=== PATIENT | male | born 1970 | race African-American/Black ===

== ENCOUNTER 2020-08-11 01:52 | Emergency (ER) | payer MEDICAID ==
[~2020-08-11] VITALS: Ht 172.7 cm; Wt 133.8 kg
[~2020-08-11 01:52] MED LIST: METF1000 PO
[2020-08-11 04:00] VITALS: BP 129/70
[2020-08-11 05:01] LABS: BASOPHILS % 1.1 % (0.0-2.0); HEMATOCRIT. 35.9 % (42.0-52.0); HEMOGLOBIN. 11.8 g/dL (14.0-18.0); LYMPHOCYTES % 35.5 % (20.0-50.0); MEAN CORPUSCULAR HEMOGLOBIN 27.1 pg (28.0-32.0); MEAN CORPUSCULAR VOLUME 82.7 fL (80.0-94.0); MEAN PLATELET VOLUME 8.8 fl (7.4-10.4); NEUTROPHILS % 48.4 % (40.0-76.0); PLATELET 211 x1000/uL (130-400); RED BLOOD CELL COUNT 4.34 mill/uL (4.7-6.1); RED CELL DISTRIBUTION WIDTH 14.5 % (11.6-14.6)
[2020-08-11 05:07] LABS: CHLORIDE 101 mEq/L (98-107)
== END 2020-08-11 05:43 | disposition home or self-care (01) ==
LOC: ER 01:52
DX: J18.9 Pneumonia, unspecified organism (principal); R05 Cough; J44.9 Chronic obstructive pulmonary disease, unspecified; E11.9 Type 2 diabetes mellitus without complications; Z87.01 Personal history of pneumonia (recurrent)
CPT/HCPCS: 36415; 71045; 80053; 85025; 99284

== ENCOUNTER 2022-11-21 14:34 | Emergency (ER) | payer MEDICAID ==
[~2022-11-21] VITALS: Ht 172.7 cm; Wt 138.0 kg
[2022-11-21 15:23] VITALS: BP 160/89
[2022-11-21] MEDS ORDERED: FAMO40TA70 MT (17:00)
== END 2022-11-21 17:50 | disposition home or self-care (01) ==
LOC: ER 15:22
DX: K21.9 Gastro-esophageal reflux disease without esophagitis (principal)
CPT/HCPCS: 71045; 99283